=== PATIENT | male | born 1985 | race Caucasian/White ===

== ENCOUNTER 2016-11-26 11:23 | Day surgery (SDC) | payer OTHER ==
--- NOTE | 2016-11-22 08:21 | PDGENHP ---
History and Physical - History of Present Illness 1. Bilateral~Femoroacetabular impingement (CHELI) Cam type, with~resultant labral tear; LEFT SIDE SYMPTOMATIC 2. Femoral retrotorsion (clinical suspicion) HISTORY OF PRESENT ILLNESS: Amosis a 31 y.o.~very ~active male~who I have had the pleasure to consult on today.~I have enjoyed meeting him. He~lives in [place]. 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 ~He~is ; he~has no~children. ~Amosenjoys mountain biking, rock climbing, yoga, and running. Lane's~left~hip pain~started couple of years ago, with no~recalled trauma or injury, and with no~previous complaints.~Amosdoes not have~a known history of hip dysplasia. He has been seen by Dr. Latif and Dr. Elizalde both have diagnosed Lane with CHELI. Presentation today is of~anterior left~hip pain. ~The hip does~wake him~at night and does~click and catch on him. Sitting does not present a problem~for him. Amosdoes~report suffering from lower back pain episodes. Amoshas~participated in physical therapy (August-September 2016)~and has~tried other conservative measures including chiropractic treatments and massage therapy. He~ has not~received sufficient symptomatic improvement. Amoshas~utilized medication for pain management, including NSAID. Amoshas used medication since the pain started Amosdenies issues with the right~hip. ~ Amosunderstands that he~has a hip and pelvis problem which should be researched and wishes to get a better understanding of his~hip status, followed by an establishment of a treatment strategy, hoping heJosewould be able to get back to his~well being active life. History: Past medical history: ~ Crohn's Disease Relevant familial history: Father TKA, hx of melanoma ~~~~~~~~~~~~~~~~~~~~~~~~~~~~~~~~~~~~Mother: TKA Past surgical history: None Amoshas never received general anesthesia. I have reviewed, verified and agree with the past medical, surgical, family and social history. Current Medications:~currently has no medications in their medication list. ALLERGIES:~has No Known Allergies. Objective: Physical Examination: Amosis 6~feet 6~inches tall and weighs~200~Lbs. Lane~is AAO x3; he~is well- nourished, in NAD. Skin is warm and dry. ~Breathing is non-labored. ~CV with RRR by pulse. Abdomen is soft, NTND. Currently, he~walks with a normal~gait. Trendelenburg sign is negative~and proprioception~is normal, both~sides. He~presents~with mild~signs of joint laxity.~Beightons Score: 2 He~is fit looking. ~~ Lower spine examination is negative~for sciatic or femoral nerve irritation with negative~SLR &~femoral stretch tests. Range of motion of the spine is normal~for flexion, extension, and rotations, with no~associated pain. Strength, Sensation and pulses are normal - bilaterally Ankles and knees exams are normal~and no~mal-alignment is evident. He~has~no leg length discrepancy. Thigh circumference is asymmetric~with low~muscle atrophy~on left~sides. Hip ROM (degrees): FL ER At 90~hip FL IR At 90~hip FL AB AD EX IR Neutral hip ER Neutral hip R 105 55 0 30 5 10 20 40 L 105 45 5 35 5 10 15 45 Specific hip and pelvis tests: Quadrant GLADIS Roll Add. Longus R + Negative Negative Negative L +++ +++ Negative Negative Glut. Med ITB Pos. Imp R Negative 5/5 strength Negative 5/5 strength Negative L Negative 5/5 strength Negative 5/5 strength Negative Squeeze test measured strong Bony Symphysis pubis is painful~to touch while concentric activity of the rectus abdominis, does not~produce pain at its insertion. Ilio Psos specific tests are negative for pain during cycling for the left hip~ and~remarkable for non painful snap HF has good strength, no pain both hips. Left anterior~capsule tenderness Greater trochanteric burse is pain free~on both hips. Piriformis tests: FAIR is negative, with no~local signs of neuritis related to sciatic nerve. SIJs examination is produces pain on left side~with normal~GLADIS in relation and local tenderness. Hamstrings tests are negative~functional contraction and negative~tendinopathy both hips. On a daily basis, the following percentages reflect Lane's overall total pain: Deep hip: 100% Imaging: Radiology studies which I~have personally reviewed, analyzed and measured are below: XR: AP of the hip and pelvis: Performed in a good~technique Coccyx to pubic symphysis distance 0.8~cm. 3~caudal [place]~Lines are preserved. Minimal~Pathological signs are seen in the Symphysis Pubis. Minimal~Pathological signs are seen at the Ischial~tuberosity. ~ Specific measurements show: NSA~ LCE Sourcil~Angle Sharp's angle Lat. Cam Lat. Pincer C.Over~sign Head~Coverage % ATDmm R N 29 10 40 + - 12-1 N N L N 28 8 42 ++ - 12-12:30 N N Pos. wall sign ISS NAD ~~Dysplasia Comments R + Negative 16.4~mm Negative L Negative Negative 17.3~mm Negative Sclerosis Sup. Lat. OA Cysts Joint Space-WBZ Joint Space-Medial R Negative Negative Negative 5.6~mm 5.6~mm L Negative Negative Negative 5.6~mm 4.5~mm X Table lateral: Anterior cam lesion is seen~on both hips. Alpha Angle: ~ Right 82~dergrees Left 93~degrees MRI shows: good cartilage coverage, labral tear, CAM lesion, no bone edema Impression and plan:~ Lane~is a 31 y.o.~active male~suffering from symptomatic bilateral~hip pain due to Bilateral~Femoroacetabular impingement (CHELI) Cam type, with~resultant labral tear~causing significant disability to him~and altering~his~sport and life activities. Physical examination, imaging, and his~story correspond with the diagnosis mentioned above. I explained that femoroacetabular impingement (CHELI) arises due to a bony or soft tissue conflict between the femur (ball) and acetabulum (socket) caused by an abnormality in the shape of the hip joint. Over time, repetitive impingement can result in damage to the labrum and adjacent surface cartilage within the socket, ultimately giving rise to progressive osteoarthritis of the hip. I explained that although a labral tear can be a source of pain, it is rarely the root of the problem and typically occurs secondary to an underlying abnormality in the shape and mechanics of the hip joint. ~ I reviewed conservative treatment options for CHELI including activity modification to avoid positions of impingement, physical therapy, non-steroidal anti-inflammatory medications, and various injections (corticosteroid and PRP) aimed at reducing inflammation in the hip joint or/and preventing dynamic impingement. PRP injections may promote healing and reduce symptoms in certain cases but it will not repair chronically damaged tissue. Although these measures may help to buy time~and reduce current level of symptoms, they are not a definitive solution to the problem given the underlying abnormality in the shape of the hip joint. Patients who have failed conservative management and continue to experience symptoms are candidates for hip arthroscopy, a minimally invasive surgery that can definitively address the underlying problem. Hip arthroscopy typically includes treating the labrum with either repair or reconstruction of the torn labrum; as well as addressing the underlying abnormalities by restoring the normal shape to the hip joint. ~If the cartilage is damaged a Microfracture surgical procedure may also be necessary to help stimulate the growth of fibrocartilage. ~If a patient requires a labral reconstruction or a Microfracture, the initial rehabilitation from the surgery may take longer, but the intermediate frame tender results are typically favorable. I reviewed the technical aspects of hip arthroscopy including risks, benefits, and expected course of recovery. Lane~understands that hip arthroscopy is a minimally invasive outpatient procedure carried out through small incisions on the outer aspect of the hip joint. During surgery, the labral tear will be identified and either repaired or reconstructed~using bone anchors and suture material. Additionally, any excessive bone will be removed with a high-speed chen to reshape the hip joint and restore normal anatomy. Risks include infection, bleeding, injury to nearby nerves or vessels, stiffness, persistent pain, instability, venous thromboembolic disease, and traction related complications including temporary foot numbness. Rarely, revision surgery may be required to address these problems. Overall recovery takes approximately 4~~ 8~months depending on the extent of damage and degree of repair. In the event that the labral tissue quality is inadequate for successful repair and healing, Lane~understands that a labral reconstruction will be performed. This procedure entails placing a cadaver tissue graft within the hip joint and stabilizing it with bone anchors to build a new labrum. The overall recovery time for labral reconstruction is similar to that of labral repair, although the surgical procedure takes longer to perform. Lane~will review the info presented. In order to obtain more detailed information regarding the alignment, orientation, and shape of the bony hip and pelvis I will order a CT scan to be performed. The results of the CT scan, including femoral torsion and acetabular version measured values and 3D images, will aid me in deciding on the best treatment strategy and surgical pre-planning. Lane~will contact us if he~wishes to pursue further treatment in the future. Lane~is happy with this plan. I have also supplied him~with handouts, outlining the expected surgical treatment and rehab involved. I wish~Amosall the best, ~~ Babatunde Marcano, PAC History Information - Allergies/Home Medication List Allergies/Adverse Reactions: No Known Allergies Allergy (Unverified 11/19/16 11:44) Home Medications: FLUoxetine 11/19/16 [Last Taken 11/25/16 09:00] Multivitamin 11/19/16 [Last Taken 11/19/16] I have personally reviewed and updated: medical history - Social History Smoking Status: Never smoked
[2016-11-26 12:25] VITALS: PULSE 50
[2016-11-26] MEDS ORDERED: LR 1,000 ML IV ONE (12:26)
--- NOTE | 2016-11-26 13:26 | PDANEPAE ---
ANE History of Present Illness 31 yo M here for L hip scope ANE Past Medical History - Cardiovascular History Hx Hypertension: No Hx Arrhythmias: No Hx Chest Pain: No Hx Coronary Artery / Peripheral Vascular Disease: No Hx CHF / Valvular Disease: No Hx Palpitations: No - Pulmonary History Hx COPD: No Hx Asthma/Reactive Airway Disease: No Hx Recent Upper Respiratory Infection: No Hx Oxygen in Use at Home: No Hx Sleep Apnea: No Sleep Apnea Screening Result - Last Documented: Negative - Neurologic History Hx Cerebrovascular Accident: No Hx Seizures: No Hx Dementia: No - Endocrine History Hx Diabetes: No - Renal History Hx Renal Disorders: No - Liver History Hx Hepatic Disorders: No - Neurological & Psychiatric Hx Hx Neurological and Psychiatric Disorders: Yes Neurological / Psychiatric History Comment: Rx to stabilize mood/irritability - Cancer History Hx Cancer: No - Congenital Disorder History Hx Congenital Disorders: No - GI History Hx Gastrointestinal Disorders: Yes Gastrointestinal History Comment: "managed" bowel condition-with diet and life style. - Other Health History Other Health History: L hip-labral tear,acetabular impingement - Chronic Pain History Chronic Pain: Yes (L hip) - Surgical History Prior Surgeries: only wisdom teeth extraction ANE Review of Systems Review of systems is: negative - Exercise capacity Exercise capacity: >=4 METS METS (RN): 4 METS ANE Patient History - Allergies Allergies/Adverse Reactions: No Known Allergies Allergy (Unverified 11/19/16 11:44) - Home Medications Home medications: home medication list seen and reviewed Home Medications: FLUoxetine 11/19/16 [Last Taken 11/25/16 09:00] Multivitamin 11/19/16 [Last Taken 11/19/16] - NPO status NPO Status: no food or drink >8 hours NPO Since - Liquids (Date): 11/26/16 NPO Since - Liquids (Time): 10:30 NPO Since - Solids (Date): 11/25/16 NPO Since - Solids (Time): 22:00 - Anes Hx Anes Hx: no prior problems - Smoking Hx Smoking Status: Never smoked - Alcohol Use Alcohol Use: Occasionally - Family Anes Hx Family Anes Hx: none ANE Labs/Vital Signs - Vital Signs Blood Pressure: 124/75 Heart Rate: 50 Respiratory Rate: 16 O2 Sat (%): 96 Height: 195.58 cm Weight: 88.451 kg ANE Physical Exam - Airway Neck exam: FROM Mallampati Score: Class 1 Mouth exam: normal dental/mouth exam - Pulmonary Pulmonary: no respiratory distress, clear to auscultation - Cardiovascular Cardiovascular: regular rate and rhythym, no murmur, rub, or gallop - ASA Status ASA Status: II ANE Anesthesia Plan Anesthesia Plan: general endotracheal anesthesia
[2016-11-26] MEDS ORDERED: MIDAZOLAM 2 MG/2 ML VIAL IVP ONE (13:27)
[2016-11-26] MEDS ORDERED: ceFAZolin 2 GM/DEXTROSE 100 ML IV ONE (13:31)
[2016-11-26] MEDS ORDERED: PREGABALIN 150 MG CAP PO ONE (13:31)
[2016-11-26] MEDS ORDERED: ACETAMINOPHEN 500 MG TAB PO ONE (13:31)
[2016-11-26] MEDS ORDERED: SCOPOLAMINE HYDROBROMIDE 1.5 MG PATCH TD ONE (13:39)
[2016-11-26] MEDS ORDERED: fentaNYL 100 MCG/2 ML INJ ONE (13:45)
[2016-11-26] MEDS ORDERED: PROPOFOL 200 MG/20 ML VIAL ONE ×2 (13:45)
[2016-11-26] MEDS ORDERED: ROCURONIUM 50 MG/5 ML VIAL ONE (13:50)
[2016-11-26] MEDS ORDERED: BUPIVACAINE/EPI 0.25% 30 ML SDV ONE (13:57)
[2016-11-26] MEDS ORDERED: DEXAMETHASONE 4 MG/ML VIAL ONE (15:00)
[2016-11-26] MEDS ORDERED: HYDROmorphONE/DILAUDID 2 MG/ML INJ ONE (16:09)
[2016-11-26] MEDS ORDERED: OXYCODONE/APAP 5/325 TAB PO PRN (17:22)
[2016-11-26] MEDS ORDERED: ONDANSETRON DISINTEGRATING 4 MG TAB PO PRN (17:22)
[2016-11-26] MEDS ORDERED: PROMETHAZINE HCL 25 MG/ML INJ IVP PRN (17:54)
[2016-11-26] MEDS ORDERED: MEPERIDINE 25 MG/ML SYR IVP PRN (17:54)
[2016-11-26] MEDS ORDERED: NALOXONE HCL 0.4 MG/ML INJ IVP PRN (17:54)
[2016-11-26] MEDS ORDERED: ACETAMINOPHEN 500 MG TAB PO PRN (17:54)
[2016-11-26] MEDS ORDERED: ONDANSETRON 4 MG/2 ML VIAL IVP PRN (17:54)
[2016-11-26] MEDS ORDERED: HYDROmorphONE/DILAUDID 1 MG/ML SYR IVP PRN ×2 (17:54)
[2016-11-26] MEDS ORDERED: fentaNYL 100 MCG/2 ML INJ IVP PRN ×2 (17:54)
[2016-11-26] MEDS ORDERED: ONDANSETRON 4 MG/2 ML VIAL ONE (19:04)
[2016-11-26 19:47] VITALS: TEMP 97.7
[2016-11-26 19:59] VITALS: RESP 16
[2016-11-26 21:10] VITALS: BP 145/74; O2SAT 96
--- NOTE | 2016-11-26 21:23 | POSTANESTH ---
Post Anesthetic Evaluation Cardiovascular Status: Normal, Stable, Similar to Pre-Op Cond Respiratory Status: Normal, Stable, Similar to Pre-op Cond. Level of Consciousness/Mental Status: Can Participate in Eval, Alert and Oriented Pain Control: Adequate, Prn Tx Ordered Nausea/Vomiting Control: Adequate, Prn Tx Ordered Complications Possibly Related to Anesthesia: None Noted
[2016-11-26] MEDS ORDERED: ONDANSETRON DISINTEGRATING 4 MG TAB ONE (21:25)
[2016-11-29] MEDS ORDERED: PATCH REMOVAL 1 EA PATCH TD ONE (13:39)
== END 2016-11-26 21:44 | disposition home or self-care (01) ==
LOC: FSGY 11:23
PROVIDERS: ATTEND Orthopaedic Surgery Sports Medicine
PROC: 0QQ74ZZ Repair Left Upper Femur, Percutaneous Endoscopic Approach (ICD-10-PCS; principal; 2016-11-26 12:30)
PROC: 0MQL4ZZ Repair Right Hip Bursa and Ligament, Percutaneous Endoscopic Approach (ICD-10-PCS; principal; 2016-11-26 12:30)
DX: M76.892 Other specified enthesopathies of left lower limb, excluding foot (principal); Q65.89 Other specified congenital deformities of hip; M24.152 Other articular cartilage disorders, left hip
CPT/HCPCS: 29914; 29916; 76001; C1769; C1713; J0171; J0690; J1100; J1170; J2250; J2405; J2704; J3010

== ENCOUNTER 2018-09-15 11:39 | Inpatient (IN) | payer OTHER ==
--- NOTE | 2018-09-14 21:04 | PDGENHP ---
History and Physical - Chief Complaint Bilateral Hip Hip Pain - History of Present Illness 1. Bilateral~Hip Pain; probable AVN 2. 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 ~mAosenjoys mountain biking, rock climbing, yoga, and running. Lane's~Bilateral~hip pain~started couple of years ago, with~no~recalled trauma or injury, and with~no~previous complaints.~Amosdoes not have~a known history of hip dysplasia. He has been seen by Dr. Latif and Dr. Elizalde~both have diagnosed Lane with CHELI. Presentation today is of~anterior~Bilateral~hip pain. ~The hip~does~wake him~at night and~does~click and catch on~him. Sitting~does not present a problem~for him.~Amosdoes~report suffering from lower back pain episodes. Amoshas~participated in physical therapy (August-September 2016)~and has~tried other conservative measures including chiropractic treatments and massage therapy.~Robbie~ has not~received sufficient symptomatic improvement. Amoshas~utilized medication for pain management, including NSAID.~Amoshas used medication since the pain started Amosdenies issues with the right~hip. ~ Amosunderstands that~kassyhas a hip and pelvis problem which should be researched and wishes to get a better understanding of~his~hip status, followed by an establishment of a treatment strategy, hopingmarquisewould be able to get back to~his~well being active life. History: Past medical history:~~ Crohn's Disease Relevant familial history:~Father TKA, hx of melanoma ~~~~~~~~~~~~~~~~~~~~~~~~~~~~~~~~~~~~Mother: TKA Past surgical history:~ LEFT HIP ARTHROSCOPY Amoshas never received general anesthesia. I have reviewed, verified and agree with the past medical, surgical, family and social history. Current Medications:~currently has no medications in their medication list. ALLERGIES:~has No Known Allergies. Objective: Physical Examination: Lane~is 6~feet~6~inches tall and weighs~200~Lbs. Lane~is AAO x3; robbie~is well- nourished, in NAD. Skin is warm and dry. ~Breathing is non-labored. ~CV with RRR by pulse. Abdomen is soft, NTND. Currently,~robbie~walks with a~normal~gait. Trendelenburg sign is~negative~and proprioception~is normal,~both~sides. He~presents~with mild~signs of joint laxity.~Beightons Score:~2 He~is fit looking. ~~ Lower spine examination is~negative~for sciatic or femoral nerve irritation with negative~SLR &~femoral stretch tests. Range of motion of the spine is normal~for flexion, extension, and rotations,~with no~associated pain. Strength, Sensation and pulses are~normal -~bilaterally Ankles and knees exams are~normal~and~no~mal-alignment is evident.~ Robbie~has~no leg length discrepancy. Thigh circumference is~asymmetric~with low~muscle atrophy~on left~sides. Hip ROM (degrees): FL ER At 90~hip FL IR At 90~hip FL AB AD EX IR Neutral hip ER Neutral hip R 105 55 0 30 5 10 20 40 L 105 45 5 35 5 10 15 45 Specific hip and pelvis tests: Quadrant GLADIS Roll Add. Longus R + Negative Negative Negative L +++ +++ Negative Negative Glut. Med ITB Pos. Imp R Negative 5/5 strength Negative 5/5 strength Negative L Negative 5/5 strength Negative 5/5 strength Negative Squeeze test measured~strong Bony Symphysis pubis is~painful~to touch while concentric activity of the rectus abdominis, does not~produce pain at its insertion. Ilio Psos specific tests are~negative for pain during cycling for~the left hip~ and~remarkable for non painful snap HF has~good strength, no pain~both hips. Left anterior~capsule tenderness Greater trochanteric burse is~pain free~on both hips. Piriformis tests: FAIR is~negative,~with no~local signs of neuritis related to sciatic nerve. SIJs examination is~produces pain on~left side~with~normal~GLADIS in relation and local tenderness. Hamstrings tests are~negative~functional contraction and negative~tendinopathy both hips. On a daily basis, the following percentages reflectVane's overall total pain: Deep hip:~100% Imaging: Radiology studies which I~have personally reviewed, analyzed and measured are below: XR: AP of the hip and pelvis: Performed in a~good~technique Coccyx to pubic symphysis distance~0.8~cm. 3~caudal [place]~Lines are preserved. Minimal~Pathological signs are seen in the Symphysis Pubis.~ Minimal~Pathological signs are seen at the Ischial~tuberosity. ~ Specific measurements show: NSA~ LCE Sourcil~Angle Sharp's angle Lat. Cam Lat. Pincer C.Over~sign Head~Coverage % ATDmm R N 29 10 40 + - 12-1 N N L N 28 8 42 ++ - 12-12:30 N N Pos. wall sign ISS NAD ~~Dysplasia Comments R + Negative 16.4~mm Negative L Negative Negative 17.3~mm Negative Sclerosis Sup. Lat. OA Cysts Joint Space-WBZ Joint Space-Medial R Negative Negative Negative 5.6~mm 5.6~mm L Negative Negative Negative 5.6~mm 4.5~mm X Table lateral: Anterior cam lesion is~seen~on both hips. Alpha Angle: ~ Right~82~dergrees Left~93~degrees MRI shows:~good cartilage coverage, labral tear, CAM lesion, no bone edema Impression and plan:Jose Trinidadis a~33 y.o.~active male~suffering from symptomatic~bilateral~hip pain due to possible AVN~~causing significant disability to~him~and altering~his~sport and life activities. Physical examination, imaging, and~his~story correspond with the diagnosis mentioned above. I explained that femoroacetabular impingement (CHELI) arises due to a bony or soft tissue conflict between the femur (ball) and acetabulum (socket) caused by an abnormality in the shape of the hip joint. Over time, repetitive impingement can result in damage to the labrum and adjacent surface cartilage within the socket, ultimately giving rise to progressive osteoarthritis of the hip. I explained that although a labral tear can be a source of pain, it is rarely the root of the problem and typically occurs secondary to an underlying abnormality in the shape and mechanics of the hip joint. ~ I reviewed conservative treatment options for CHELI including activity modification to avoid positions of impingement, physical therapy, non-steroidal anti-inflammatory medications, and various injections (corticosteroid and PRP) aimed at reducing inflammation in the hip joint or/and preventing dynamic impingement. PRP injections may promote healing and reduce symptoms in certain cases but it will not repair chronically damaged tissue. Although these measures may help to buy time and reduce current level of symptoms, they are not a definitive solution to the problem given the underlying abnormality in the shape of the hip joint. Patients who have failed conservative management and continue to experience symptoms are candidates for hip arthroscopy, a minimally invasive surgery that can definitively address the underlying problem. Hip arthroscopy typically includes treating the labrum with either repair or reconstruction of the torn labrum; as well as addressing the underlying abnormalities by restoring the normal shape to the hip joint. ~If the cartilage is damaged a Microfracture surgical procedure may also be necessary to help stimulate the growth of fibrocartilage. ~If a patient requires a labral reconstruction or a Microfracture, the initial rehabilitation from the surgery may take longer, but the halfway results are typically favorable. I reviewed the technical aspects of hip arthroscopy including risks, benefits, and expected course of recovery.~Lane~understands that hip arthroscopy is a minimally invasive outpatient procedure carried out through small incisions on the outer aspect of the hip joint. During surgery, the labral tear will be identified and either repaired or reconstructed~using bone anchors and suture material. Additionally, any excessive bone will be removed with a high-speed chen to reshape the hip joint and restore normal anatomy. Risks include infection, bleeding, injury to nearby nerves or vessels, stiffness, persistent pain, instability, venous thromboembolic disease, and traction related complications including temporary foot numbness. Rarely, revision surgery may be required to address these problems. Overall recovery takes approximately 4~ 8~months depending on the extent of damage and degree of repair. In the event that the labral tissue quality is inadequate for successful repair and healing,~Lane~understands that a labral reconstruction will be performed. This procedure entails placing a cadaver tissue graft within the hip joint and stabilizing it with bone anchors to build a new labrum. The overall recovery time for labral reconstruction is similar to that of labral repair, although the surgical procedure takes longer to perform. Lane~will review the info presented. In order to obtain more detailed information regarding the alignment, orientation, and shape of the bony hip and pelvis I will order a CT scan to be performed. The results of the CT scan, including femoral torsion and acetabular version measured values and 3D images, will aid me in deciding on the best treatment strategy and surgical pre-planning. Lane~will contact us if he~wishes to pursue further treatment in the future. Amosis happy with this plan. I have also supplied~him~with handouts, outlining the expected surgical treatment and rehab involved. I wish~Amosall the best, ~~ Babatunde Marcano, PAC History Information - Allergies/Home Medication List Allergies/Adverse Reactions: No Known Allergies Allergy (Unverified 11/19/16 11:44) Home Medications: NK [No Known Home Meds] 09/09/18 [Last Taken Unknown] I have personally reviewed and updated: medical history - Social History Smoking Status: Never smoked Review of Systems Review of Systems: Physical Exam Physical Exam:
[2018-09-15] MEDS ORDERED: PREGABALIN 150 MG CAP PO ONE (12:14)
[2018-09-15] MEDS ORDERED: ACETAMINOPHEN 500 MG TAB PO ONE (12:14)
[2018-09-15] MEDS ORDERED: ceFAZolin 2 GM/DEXTROSE 100 ML IV ONE ×2 (12:14→21:35)
[2018-09-15] MEDS ORDERED: LIDOCAINE 1% 2 ML INJ ID PRN (12:16)
[2018-09-15] MEDS ORDERED: LR 1,000 ML IV ONE (12:16)
[2018-09-15] MEDS ORDERED: MIDAZOLAM 2 MG/2 ML VIAL IVP ONE (13:06)
[2018-09-15] MEDS ORDERED: fentaNYL 100 MCG/2 ML INJ ONE ×6 (13:08→23:29)
--- NOTE | 2018-09-15 13:08 | PDANEPAE ---
ANE History of Present Illness bilateral hip pain ANE Past Medical History - Cardiovascular History Hx Hypertension: No Hx Arrhythmias: No Hx Chest Pain: No Hx Coronary Artery / Peripheral Vascular Disease: No Hx CHF / Valvular Disease: No Hx Palpitations: No - Pulmonary History Hx COPD: No Hx Asthma/Reactive Airway Disease: No Hx Recent Upper Respiratory Infection: No Hx Oxygen in Use at Home: No Hx Sleep Apnea: No Sleep Apnea Screening Result - Last Documented: Negative - Neurologic History Hx Cerebrovascular Accident: No Hx Seizures: No Hx Dementia: No - Endocrine History Hx Diabetes: No Hypothyroid: No Hyperthyroid: No Obesity: no - Renal History Hx Renal Disorders: No - Liver History Hx Hepatic Disorders: No - Neurological & Psychiatric Hx Hx Neurological and Psychiatric Disorders: No Neurological / Psychiatric History Comment: Rx to stabilize mood/irritability - Cancer History Hx Cancer: No - Congenital Disorder History Hx Congenital Disorders: No - GI History Hx Gastrointestinal Disorders: Yes Gastrointestinal History Comment: MANAGES bowel condition-with diet and life style. - Other Health History Other Health History: LT HIP CONTINUOUS PAIN LIMITED ROM - Chronic Pain History Chronic Pain: Yes (L hip) - Surgical History Prior Surgeries: LT HIP SCOPE 11/2016. only wisdom teeth extraction ANE Review of Systems Review of systems is: negative Review of Systems: - Exercise capacity METS (RN): 5 METS ANE Patient History - Allergies Allergies/Adverse Reactions: No Known Allergies Allergy (Verified 09/15/18 12:36) - Home Medications Home medications: home medication list seen and reviewed Home Medications: NK [No Known Home Meds] 09/09/18 [Last Taken Unknown] - NPO status NPO Since - Liquids (Date): 09/14/18 NPO Since - Liquids (Time): 11:00 NPO Since - Solids (Date): 09/14/18 NPO Since - Solids (Time): 22:00 - Anes Hx Anes Hx: no prior problems - Smoking Hx Smoking Status: Never smoked - Alcohol Use Alcohol Use: None ANE Labs/Vital Signs - Vital Signs Blood Pressure: 125/73 Heart Rate: 45 Respiratory Rate: 17 O2 Sat (%): 97 Height: 195.58 cm Weight: 88.451 kg ANE Physical Exam - Airway Neck exam: FROM Mallampati Score: Class 1 Mouth exam: normal dental/mouth exam - Pulmonary Pulmonary: no respiratory distress - Cardiovascular Cardiovascular: regular rate and rhythym - ASA Status ASA Status: I ANE Anesthesia Plan Anesthesia Plan: general endotracheal anesthesia
[2018-09-15] MEDS ORDERED: PROPOFOL 200 MG/20 ML VIAL ONE ×3 (13:09→19:47)
[2018-09-15] MEDS ORDERED: ROCURONIUM 100 MG/10 ML VIAL ONE ×2 (13:10→14:56)
[2018-09-15] MEDS ORDERED: LIDOCAINE 2% 2 ML INJ ONE ×2 (13:11)
[2018-09-15] MEDS ORDERED: MIDAZOLAM 2 MG/2 ML VIAL ONE (13:15)
[2018-09-15] MEDS ORDERED: ONDANSETRON 4 MG/2 ML VIAL ONE (13:16)
[2018-09-15] MEDS ORDERED: DEXAMETHASONE 4 MG/ML VIAL ONE (13:16)
--- NOTE | 2018-09-15 13:16 | POSTANESTH ---
Post Anesthetic Evaluation Cardiovascular Status: Normal, Stable Respiratory Status: Normal, Stable Level of Consciousness/Mental Status: Can Participate in Eval Pain Control: Adequate, Prn Tx Ordered Nausea/Vomiting Control: Adequate, Prn Tx Ordered Complications Possibly Related to Anesthesia: None Noted
[2018-09-15] MEDS ORDERED: SUGAMMADEX SODIUM 200 MG/2 ML VIAL IVP ONE (13:17)
[2018-09-15] MEDS ORDERED: BUPIVACAINE/EPI 0.25% 30 ML SDV ONE (13:47)
[2018-09-15] MEDS ORDERED: EPINEPHrine 30 MG/30 ML MDV (0.1 MG/0.1 ML) ONE (13:47)
[2018-09-15] MEDS ORDERED: HYDROmorphONE/DILAUDID 2 MG/ML INJ ONE (13:55)
[2018-09-15] MEDS ORDERED: ePHEDrine SULFATE 25 MG/5 ML SYR ONE (14:59)
[2018-09-15] MEDS ORDERED: PROMETHAZINE HCL 25 MG/ML INJ IVP PRN ×2 (15:57→22:26)
[2018-09-15] MEDS ORDERED: DIAZEPAM 10 MG/2 ML SYR IVP PRN ×2 (15:57→22:26)
[2018-09-15] MEDS ORDERED: ACETAMINOPHEN 500 MG TAB PO PRN ×2 (15:57→22:26)
[2018-09-15] MEDS ORDERED: NALOXONE HCL 0.4 MG/ML INJ IVP PRN ×3 (15:57→22:26)
[2018-09-15] MEDS ORDERED: oxyCODONE IR 5 MG TAB PO PRN ×2 (15:57→22:26)
[2018-09-15] MEDS ORDERED: ONDANSETRON 4 MG/2 ML VIAL IVP PRN ×2 (15:57→22:26)
[2018-09-15] MEDS ORDERED: LR 500 ML IV PRN ×2 (15:57→22:26)
[2018-09-15] MEDS ORDERED: HYDROmorphONE/DILAUDID 1 MG/ML INJ IVP PRN (15:57)
[2018-09-15] MEDS ORDERED: HYDROCODONE/APAP 5/325 TAB PO PRN ×2 (15:57→22:26)
[2018-09-15] MEDS ORDERED: ALBUTEROL 3 ML DEYVIAL IH PRN ×2 (15:57→22:25)
[2018-09-15] MEDS ORDERED: ceFAZolin 1 GM VIAL ONE ×2 (17:10)
[2018-09-15] MEDS ORDERED: ROCURONIUM 50 MG/5 ML VIAL ONE ×2 (17:58→20:56)
[2018-09-15] MEDS ORDERED: CEFAZOLIN 2 GM/DEXTROSE/100 ML BAG IV ONE (21:24)
[2018-09-15] MEDS ORDERED: ceFAZolin 1 GM VIAL IV ONE (21:35)
[2018-09-15] MEDS ORDERED: LABETALOL HCL 5 MG/ML 20 ML MDV IVP PRN (22:25)
[2018-09-15] MEDS ORDERED: MEPERIDINE 25 MG/0.5 ML AMP IVP PRN (22:25)
[2018-09-15] MEDS ORDERED: MEPERIDINE 25 MG/0.5 ML AMP ONE (22:25)
[2018-09-15] MEDS ORDERED: METOCLOPRAMIDE 10 MG/2 ML VIAL IVP PRN (22:26)
[2018-09-15] MEDS: fentaNYL 100 MCG/2 ML INJ IVP PRN ×3 (22:30→23:30)
[2018-09-15] MEDS ORDERED: DIAZEPAM 10 MG/2 ML SYR ONE (22:34)
[2018-09-15] MEDS ORDERED: HYDROmorphONE/DILAUDID 1 MG/ML INJ ONE (22:35)
[2018-09-15] MEDS: HYDROmorphONE/DILAUDID 1 MG/ML INJ IVP PRN ×2 (22:38→22:43)
[2018-09-16] MEDS: fentaNYL 100 MCG/2 ML INJ IVP PRN (00:15)
[2018-09-16] MEDS ORDERED: ACETAMINOPHEN 500 MG TAB PO PRN (00:16)
[2018-09-16] MEDS ORDERED: ONDANSETRON 4 MG/2 ML VIAL IVP PRN (00:18)
[2018-09-16] MEDS ORDERED: ONDANSETRON DISINTEGRATING 4 MG TAB PO PRN (00:18)
[2018-09-16] MEDS: oxyCODONE IR 5 MG TAB PO PRN ×6 (00:36→19:51)
[2018-09-16] MEDS: HYDROmorphONE/DILAUDID 1 MG/ML INJ IVP PRN ×4 (02:38→21:40)
--- NOTE | 2018-09-16 09:25 | PDMN ---
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
--- NOTE | 2018-09-16 13:49 | SOAPPROG ---
SOAP Progress Note Assessment/Plan: Assessment: 1 day post op Bilateral core decompression Left hip arthroscopy with cartilage graft Plan: D/C home see instructions 09/16/18 13:46 Subjective: Lane seen this morning. He was well pain managed at that time. He denies cp, sob or nausea. Objective: Vital Signs Temp Pulse Resp BP Pulse Ox 36.9 C 91 16 120/70 96 09/16/18 11:22 09/16/18 11:22 09/16/18 11:22 09/16/18 11:22 09/16/18 11:22 09/15/18 09/16/18 09/17/18 05:59 05:59 05:59 Intake Total 3050 Output Total 580 1750 Balance 2470 -1750 well appearing in NAD Left hip: dressing a little saturated ecchymosis and edema no thigh numbness NVI distally Right hip: dressings clean dry intact some ecchymosis and edema - Pending Discharge Pending Discharge Within 24 Hours: Yes Pending Discharge Date: 09/17/18 Pending Discharge Time: 11:00 ICD10 Worksheet Patient Problems: Problems Problem Status Onset Post-operative pain Acute - ICD10 Problem Qualifiers (1) Post-operative pain
[2018-09-16] MEDS: DIAZEPAM 2 MG TAB PO PRN ×2 (14:33→19:55)
--- NOTE | 2018-09-16 15:37 | ASMTCMCOM ---
CM Note CM Note Notes: Pt had planned hip surgery, resides with spouse. PT ordered today so likely eval will be tomorrow. CM to follow pt. D/c plan: Likely independent, following rec for outpatient Date Signed: 09/16/2018 03:36 PM Electronically Signed By:KENDALL Vo
[2018-09-17] MEDS: oxyCODONE IR 5 MG TAB PO PRN ×3 (00:01→08:13)
[2018-09-17] MEDS: HYDROmorphONE/DILAUDID 1 MG/ML INJ IVP PRN ×2 (00:08→10:20)
[2018-09-17] MEDS: DIAZEPAM 2 MG TAB PO PRN ×3 (04:08→16:13)
[2018-09-17] MEDS ORDERED: NS 1,000 ML IV SCH (10:00)
[2018-09-17] MEDS: HYDROmorphONE/DILAUDID 2 MG TAB PO PRN ×2 (11:00→15:20)
[2018-09-17] MEDS ORDERED: oxyCODONE IR 5 MG TAB PO PRN (11:00)
[2018-09-17 11:21] VITALS: BP 142/79
--- NOTE | 2018-09-17 15:30 | ASMTLACE ---
LACE Length of stay for Answers: 3 days current admission Acuity / Level of Answers: Yes Care: Did the patient have an inpatient admission? Comorbidities - select Answers: Opioid dependence all that apply / Chronic pain # of Emergency department Answers: 0 visits in the last 6 months Score: 10 Date Signed: 09/17/2018 03:29 PM Electronically Signed By:KENDALL Vo
--- NOTE | 2018-09-17 15:55 | ASMTCMCOM ---
CM Note CM Note Notes: Pt medically stable for d/c, no CM d/c needs identified. PT rec home/outpatient. Pt has no PCP, [place] moved [place]. Pt declines assistance locating a PCP, he reports he will contact his insurance provider for referrals. Date Signed: 09/17/2018 03:54 PM Electronically Signed By:KENDALL Vo
--- NOTE | 2018-09-19 09:22 | GDS ---
[f rep st] DISCHARGE SUMMARY Lane underwent a bilateral cord decompression and left hip arthroscopy with cartilage implantation on September 15, 2018. Postoperatively, he was hospitalized for pain management on the floor. He was being m anaged with IV and oral analgesia. He was up with physical therapy. Postoperatively, he needed to s pend a subsequent night again because of postop pain. He was discharged by his 2nd postoperative day in good condition. He will follow up with Dr. Kramer in 1 day's time to review the surgery and pos top course. He will be nonweightbearing on his left lower extremity for 6-8 weeks. He will follow u p with Dr. Kramer in 6 weeks appointment at which time radiographs will be obtained. MRIs will not be taken until the 8-month og to evaluate progression of possible avascular necrosis and cartilage implantation. He was discharged in good condition with a full set of prescriptions and discharge ins tructions. /[id number]/MODL
== END 2018-09-17 16:24 | disposition home or self-care (01) | DRG 481 ==
LOC: FSGY 11:39 → F3N 23:09
PROVIDERS: ADMIT Orthopaedic Surgery Sports Medicine; ATTEND Orthopaedic Surgery Sports Medicine
DX: M25.852 Other specified joint disorders, left hip (principal); S73.192A Other sprain of left hip, initial encounter; M87.851 Other osteonecrosis, right femur; M87.852 Other osteonecrosis, left femur
CPT/HCPCS: 97116-GP; 97162-GP; C1713; C1762; J0171; J0690; J1100; J1170; J2175; J2250; J2405; J2704; J3010; J3360